=== PATIENT | female | born 1975 | race Caucasian/White ===

== ENCOUNTER → 2017-01-15 | Outpatient (CLI) | payer BC | LOC: OPSV 16:14 | DX: J01.90 Acute sinusitis, unspecified (principal) | CPT/HCPCS: 96365; J0696 ==

== ENCOUNTER → 2017-01-16 | Outpatient (CLI) | payer BC | LOC: OPSV 16:03 | DX: J01.90 Acute sinusitis, unspecified (principal) | CPT/HCPCS: 96365; J0696 ==

== ENCOUNTER → 2017-01-17 | Outpatient (CLI) | payer BC | LOC: OPSV 16:06 | DX: J01.90 Acute sinusitis, unspecified (principal) | CPT/HCPCS: 96365; J0696 ==

== ENCOUNTER → 2017-01-18 | Outpatient (CLI) | payer BC | LOC: OPSV 16:14 | DX: J01.90 Acute sinusitis, unspecified (principal) | CPT/HCPCS: 96365; J0696 ==

== ENCOUNTER → 2017-01-19 | Outpatient (CLI) | payer BC | LOC: OPSV 07:57 | DX: J01.90 Acute sinusitis, unspecified (principal) | CPT/HCPCS: 96365; J0696 ==

== ENCOUNTER → 2017-01-21 | Outpatient (CLI) | payer BC | LOC: OPSV 16:19 | DX: J01.90 Acute sinusitis, unspecified (principal) | CPT/HCPCS: 96365; J0696 ==

== ENCOUNTER → 2017-01-22 | Outpatient (CLI) | payer BC | LOC: OPSV 16:06 | DX: J01.80 Other acute sinusitis (principal) | CPT/HCPCS: 96365; J0696 ==

== ENCOUNTER → 2017-01-23 | Outpatient (CLI) | payer BC | LOC: OPSV 16:14 | DX: J01.90 Acute sinusitis, unspecified (principal) | CPT/HCPCS: 96365; J0696 ==

== ENCOUNTER → 2017-01-24 | Outpatient (CLI) | payer BC | LOC: OPSV 16:10 | DX: J01.90 Acute sinusitis, unspecified (principal) | CPT/HCPCS: 96365; J0696 ==

== ENCOUNTER → 2017-01-25 | Outpatient (CLI) | payer BC | LOC: OPSV 16:14 | DX: J01.90 Acute sinusitis, unspecified (principal) | CPT/HCPCS: 96365; J0696 ==

== ENCOUNTER → 2017-01-26 | Outpatient (CLI) | payer BC | LOC: OPSV 08:07 | DX: J01.90 Acute sinusitis, unspecified (principal) | CPT/HCPCS: 96365; J0696 ==

== ENCOUNTER → 2017-01-28 | Outpatient (CLI) | payer BC | LOC: OPSV 16:30 | DX: J01.90 Acute sinusitis, unspecified (principal) | CPT/HCPCS: 96365; J0696 ==

== ENCOUNTER 2020-12-19 18:49 | Emergency (ER) | payer BC, OTHER ==
[~2020-12-19 18:49] MED LIST: CLEOCIN HCL150 MG PO; INDERAL TAB 4040 MG PO; LITE COAT ASPI325 MG PO; PERCOCET 7.5-31 EACH PO; PREDNISONE10 MG PO; STOOL SOFTENER250 MG PO; ZITHROMAX250 MG PO; ZOFRAN4 MG PO
[2020-12-19 20:48] LABS: HEMOGLOBIN 14.4 gm/dl (12.3-15.3); RED BLOOD COUNT 4.86 M/UL (4.00-5.10); WHITE BLOOD COUNT 8.6 K/UL (4.5-11.0)
[2020-12-19 21:07] LABS: BUN/CREATININE RATIO 17 (0-10)
[2020-12-19] MEDS ORDERED: PERCOCET 5/325 T1 EA PO (22:32)
[2020-12-19] MEDS ORDERED: ZOFRAN ODT 4 MG4 MG GT (22:32)
== END 2020-12-19 22:45 | disposition home or self-care (01) ==
LOC: ER1 18:49
PROVIDERS: Physician Assistant Medical
DX: R10.31 Right lower quadrant pain (principal); M54.9 Dorsalgia, unspecified; Z90.49 Acquired absence of other specified parts of digestive tract; Z90.710 Acquired absence of both cervix and uterus
CPT/HCPCS: 36415; 80053; 81001; 83605; 85025; 87040; 96374; 99284; J2405; Q9967

== ENCOUNTER 2021-06-06 08:13 | Emergency (ER) | payer BC ==
[~2021-06-06 08:13] MED LIST changes: -INDERAL TAB 4040 MG PO; +PERCOCET 5/325 T1 EA PO; +ZOFRAN ODT 4 MG4 MG GT
[2021-06-06 09:09] LABS: HEMOGLOBIN 14.2 gm/dl (12.3-15.3); RED BLOOD COUNT 4.8 M/UL (4.00-5.10); WHITE BLOOD COUNT 9.3 K/UL (4.5-11.0)
[2021-06-06 09:51] LABS: BUN/CREATININE RATIO 14 (0-10)
[2021-06-06] MEDS ORDERED: HYDROCODON-ACE1 EAC4 PO (10:23)
[2021-06-06] MEDS ORDERED: TORADOL 10 MG T10 MG PO (10:25)
[2021-06-06] MEDS ORDERED: ZOFRAN4 MG PO (10:25)
[2021-06-06] MEDS ORDERED: FLOMAX0.4 MG PO (10:25)
== END 2021-06-06 10:49 | disposition home or self-care (01) ==
LOC: ER1 08:13
PROVIDERS: Physician Assistant
DX: N13.2 Hydronephrosis with renal and ureteral calculous obstruction (principal); Z90.710 Acquired absence of both cervix and uterus; Z90.49 Acquired absence of other specified parts of digestive tract; Z91.030 Bee allergy status; Z88.8 Allergy status to other drugs, medicaments and biological substances
CPT/HCPCS: 80053; 81001; 85025; 87086; 96374; 96375; 96376; 99284; J1885; J2270; J2405; J7030

== ENCOUNTER 2021-06-26 05:41 | Emergency (ER) | payer BC ==
[~2021-06-26] VITALS: Ht 175.3 cm; Wt 129.3 kg
[~2021-06-26 05:41] MED LIST changes: +FLOMAX0.4 MG PO; +HYDROCODON-ACE1 EAC4 PO; +TORADOL 10 MG T10 MG PO
[2021-06-26 06:32] LABS: HEMOGLOBIN 13.6 gm/dl (12.3-15.3); RED BLOOD COUNT 4.82 M/UL (4.00-5.10); WHITE BLOOD COUNT 9.6 K/UL (4.5-11.0)
[2021-06-26 06:47] LABS: BUN/CREATININE RATIO 14 (0-10)
[2021-06-26] MEDS ORDERED: INDERAL TAB 4040 MG PO (06:48)
[2021-06-26] MEDS ORDERED: PULMICORT0.5 MG/2 M INH (14:01)
[2021-06-27 04:14] LABS: HEMOGLOBIN 12.4 gm/dl (12.3-15.3); RED BLOOD COUNT 4.4 M/UL (4.00-5.10); WHITE BLOOD COUNT 8.7 K/UL (4.5-11.0)
[2021-06-27 04:38] LABS: BUN/CREATININE RATIO 14 (0-10)
[2021-06-28 04:46] LABS: HEMOGLOBIN 11.8 gm/dl (12.3-15.3); RED BLOOD COUNT 4.2 M/UL (4.00-5.10)
[2021-06-28 05:07] LABS: BUN/CREATININE RATIO 12 (0-10)
[2021-06-28] MEDS ORDERED: KEFLEX CAP 250250 MG PO (14:58)
[2021-06-28] MEDS ORDERED: IBUPROFEN400 MG PO (14:59)
== END 2021-06-28 16:32 | disposition home or self-care (01) ==
LOC: ER1 05:41 → CDU 09:05 → ER1 09:05 → CDU 06-27 13:56
PROVIDERS: Internal Medicine; Physician Assistant
DX: A41.9 Sepsis, unspecified organism (principal); K76.0 Fatty (change of) liver, not elsewhere classified; N10 Acute pyelonephritis; Z90.710 Acquired absence of both cervix and uterus; Z90.49 Acquired absence of other specified parts of digestive tract; E66.01 Morbid (severe) obesity due to excess calories; Z20.822 Contact with and (suspected) exposure to COVID-19
CPT/HCPCS: 80048; 80053; 81001; 83605; 85025; 86140; 87040; 87086; 96374; 96375; 99285; G0378; J0696; J1100; J1885; J2270; J2405; U0002

== ENCOUNTER → 2022-07-02 | Outpatient (CLI) | payer BC ==
[~2022-07-02] MED LIST changes: +IBUPROFEN400 MG PO; +INDERAL TAB 4040 MG PO; +KEFLEX CAP 250250 MG PO; +PULMICORT0.5 MG/2 M INH
== END ==
LOC: SLEEP 14:21
DX: G47.33 Obstructive sleep apnea (adult) (pediatric) (principal); G47.61 Periodic limb movement disorder
CPT/HCPCS: 95810

== ENCOUNTER → 2022-07-06 | Outpatient (CLI) | payer BC | LOC: LAB 08:32 | DX: U07.1 COVID-19 (principal) | CPT/HCPCS: U0002 ==